=== PATIENT | male | born 1980 | race Caucasian/White ===

== ENCOUNTER 2017-05-29 08:21 | Emergency (ER) | payer MEDICARE ==
[~2017-05-29] VITALS: Ht 193 cm; Wt 94.0 kg
[~2017-05-29 08:21] MED LIST: BACL20TA PO; DIAZ2 PO; GABA250S PO; LYRI100C PO; SULF1TAB47 PO
[2017-05-29 08:35] VITALS: BP 140/72; PULSE 72; RESP 16; TEMP 98.1; O2SAT 99
[2017-05-29 09:03] LABS: BLOOD, URINE NEG (NEG); GLUCOSE,URINE NEG (NEG); KETONE, URINE NEG (NEG); NITRITE,URINE NEG (NEG); PH, URINE 7.5 (5.0-8.5)
[2017-05-29 09:11] LABS: METHOD OF COLLECTION CLEAN CATCH; URINE COLOR YELLOW (YELLW/STRAW)
[2017-05-29 09:12] LABS: COMMENT (UR) CULT NOT INDICATED; CULTURE IF INDICATED CULT NOT INDICATED
[2017-05-29] MEDS ORDERED: BACT800T5 PO (09:47)
--- NOTE | 2017-05-29 09:48 | PD ---
HPI Chief Complaint: dysuria Time Seen by Provider: 09:32 Travel History International Travel<30 days: No Contact w/Intl Traveler<30days: No History of Present Illness HPI Patient's 37 years old. He describes dysuria and spasms sensation in the region of the urinary bladder. 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 He self catheterizes. He states that in the past urinary tract infections have felt similar. Earlier this week he went to urgent care and was diagnosed with a urinary tract infection and was given Cipro. Spine compliance he reports persistent dysuria water spasming. He's had no fever or vomiting. No flank pain. PFS Past Medical History Anxiety: Yes Neurologic: Yes (PARAPLEGIC) Past Surgical History Other Surgery: Yes (FLAPS AND GRAPHS) Social History Alcohol Use: Yes (rare) Tobacco Use: No Allergies-Medications (Allergen,Severity, Reaction): Coded Allergies: No Known Allergies (Verified , 05/29/17) Reported Meds & Prescriptions Reported Meds & Active Scripts Active Bactrim DS (Sulfamethoxazole-Trimethoprim) 800-160 Mg Tab 1 Tab PO BID Reported Cipro (Ciprofloxacin HCl) 500 Mg Tab 500 Mg PO BID Gabapentin 300 Mg Cap 300 Mg PO TID Baclofen 20 Mg Tab 20 Mg PO QID Review of Systems Except as stated in HPI: all other systems reviewed are Neg General / Constitutional: No: Fever Gastrointestinal: No: Nausea, Vomiting Genitourinary: Positive: Dysuria Physical Exam Narrative GENERAL: Well-nourished well-developed 37-year-old male pleasant no acute distress SKIN: Warm and dry. HEAD: Atraumatic. Normocephalic. EYES: Pupils equal and round. No scleral icterus. No injection or drainage. ENT: No nasal bleeding or discharge. Mucous membranes pink and moist. NECK: Trachea midline. No JVD. CARDIOVASCULAR: Regular rate and rhythm. RESPIRATORY: No accessory muscle use. Clear to auscultation. Breath sounds equal bilaterally. GASTROINTESTINAL: No significant suprapubic tenderness or tenderness elsewhere about the abdomen. Abdomen soft. No flank tenderness to percussion. MUSCULOSKELETAL: Atrophy of the bilateral lower extremities. Upper extremities normal. NEUROLOGICAL: Paralysis from the waist down. Awake and alert. Normal speech memory mentation. PSYCHIATRIC: Appropriate mood and affect; insight and judgment normal. Data Data Last Documented VS Vital Signs Date Time Temp Pulse Resp B/P (MAP) Pulse Ox O2 Delivery O2 Flow Rate FiO2 05/29/17 09:56 16 05/29/17 08:35 98.1 72 140/72 (94) 99 Room Air Vital signs reviewed Orders Orders Urinalysis - C+S If Indicated (05/29/17 08:46) Ceftriaxone Inj (Rocephin Inj) (05/29/17 10:00) Sodium Chloride 0.9% Flush (Ns Flush) (05/29/17 10:00) Lidocaine 1% Inj (50 Ml) (Xylocaine 1% I (05/29/17 10:00) Sulfamet-Trimeth Ds 800-160 Mg (Bactrim (05/29/17 10:00) Labs Laboratory Tests Test 05/29/17 08:45 Urine Collection Type CLEAN CATCH Urine Color YELLOW Urine Turbidity CLEAR Urine pH 7.5 Urine Specific [place] 1.015 Urine Protein NEG mg/dL Urine Glucose (UA) NEG mg/dL Urine Ketones NEG mg/dL Urine Occult Blood NEG Urine Nitrite NEG Urine Bilirubin NEG Urine Leukocyte Esterase SMALL Urine WBC 3-5 /hpf Urine Squamous Epithelial Cells 6-8 /hpf Microscopic Urinalysis Comment CULT NOT INDICATED Urine Collection Time 08:45 [facility] Medical Decision Making Medical Screen Exam Complete: Yes Emergency Medical Condition: Yes Medical Record Reviewed: Yes Differential Diagnosis Complicated cystitis, cystitis, hematuria, sterile pyuria, bladder spasm, appendicitis, colitis Narrative Course Urinalysis: Small leukocyte esterase 3-5 WBCs might be consistent with a UTI in the setting of a self-catheterization We'll provide the patient with a dose of Rocephin here. He'll go home with Bactrim DS. He intends to fly to [facility] in about 5 days' time and would like aggressive treatment so as to avoid infection en route overseas. Because his abdominal exam is benign and because he has no nausea vomiting or fever and has had similar prior episodes that responded well to antibiotics evaluation with additional imaging or bloodwork is considered reasonably safely deferable. Strict return precautions discussed. Diagnosis Primary Impression: UTI (urinary tract infection) Qualified Codes: N39.0 - Urinary tract infection, site not specified Additional Impression: Bladder spasms Referrals: Primary Care Physician Additional Instructions: If you do not feel significant improvement within 48 hours please return to the ER for a more thorough diagnostic evaluation. Med/Other Pt SpecificInfo: Prescription(s) given Scripts Sulfamethoxazole-Trimethoprim (Bactrim DS) 800-160 Mg Tab 1 TAB PO BID for Infection, #10 TAB 1 Refill Prov: Brown Kirkland MD 05/29/17 Disposition: 01 DISCHARGE HOME Condition: Stable Brown Kirkland MD May 29, 2017 09:48
[2017-05-29] MEDS ORDERED: SULFAMETHOXAZOLE-TRIMETHOPRIM DS 800-160 MG TAB PO ONE (10:00)
[2017-05-29] MEDS ORDERED: SODIUM CHLORIDE 0.9% FLUSH 10 ML FLUSH IVF PRN (10:00)
[2017-05-29] MEDS ORDERED: LIDOCAINE HCL 1% 50 ML VIAL XX ONE (10:00)
[2017-05-29] MEDS ORDERED: GABA300C5 PO (10:02)
[2017-05-29] MEDS ORDERED: BACL20TA PO (10:02)
[2017-05-29] MEDS ORDERED: CIPR-9 PO (10:03)
== END 2017-05-29 11:06 | disposition home or self-care (01) ==
LOC: PHED 08:21
DX: N39.0 Urinary tract infection, site not specified (principal); N32.89 Other specified disorders of bladder; G82.20 Paraplegia, unspecified
CPT/HCPCS: 81001; 96372; 99284; J0696

== ENCOUNTER 2017-09-08 11:04 | Emergency (ER) | payer MEDICARE ==
[~2017-09-08] VITALS: Ht 193 cm; Wt 94.5 kg
[~2017-09-08 11:04] MED LIST changes: +BACT800T5 PO; +CIPR-9 PO; -DIAZ2 PO; -GABA250S PO; +GABA300C5 PO; -LYRI100C PO; -SULF1TAB47 PO
[2017-09-08 11:10] VITALS: BP 137/72; PULSE 70; RESP 16; TEMP 97.9; O2SAT 99
--- NOTE | 2017-09-08 11:30 | PD ---
HPI Chief Complaint: Complaint Time Seen by Provider: 11:24 Travel History International Travel<30 days: No Contact w/Intl Traveler<30days: No Traveled to known affect area: No History of Present Illness HPI This 37-year-old male is concerned that he may have a urinary tract infection. He has some abdominal bloating and cramping which her symptoms of his urinary tract infections. He has a history of paraplegia at T6. He self catheterizes intermittently. He has not been having any fever or chills. He went to an urgent care center about a week ago and was put on Bactrim. He has not had fever or chills. PFSH Past Medical History Anxiety: Yes Genitourinary: Yes (uti) Neurologic: Yes (PARAPLEGIC , waist down) Tetanus Vaccination: < 5 Years Influenza Vaccination: No Past Surgical History Other Surgery: Yes (FLAPS AND SKIN GRAPHS TO BOTH THIGHS, right hip) Social History Alcohol Use: Yes (rare) Tobacco Use: No Substance Use: No Allergies-Medications (Allergen,Severity, Reaction): Coded Allergies: No Known Allergies (Verified Adverse Reaction, Unknown, 09/08/17) Reported Meds & Prescriptions Reported Meds & Active Scripts Active Reported Gabapentin 300 Mg Cap 300 Mg PO TID Baclofen 20 Mg Tab 20 Mg PO QID Review of Systems General / Constitutional: No: Fever, Chills Eyes: No: Diploplia, Blurred Vision HENT: No: Headaches, Vertigo Cardiovascular: No: Chest Pain or Discomfort Respiratory: No: Cough, Shortness of Breath Gastrointestinal: No: Nausea, Vomiting Genitourinary: Positive: Pelvic Pain, No: Urgency, Frequency Musculoskeletal: No: Myalgias, Arthralgias Skin: No Rash Neurologic: No: Weakness Hematologic/Lymphatic: No: Easy Bruising Physical Exam Narrative GENERAL: Well-developed male SKIN: Focused skin assessment warm/dry. HEAD: Atraumatic. Normocephalic. EYES: Pupils equal and round. No scleral icterus. No injection or drainage. ENT: No nasal bleeding or discharge. Mucous membranes pink and moist. NECK: Trachea midline. No JVD. CARDIOVASCULAR: Regular rate and rhythm. No murmur appreciated. RESPIRATORY: No accessory muscle use. Clear to auscultation. Breath sounds equal bilaterally. GASTROINTESTINAL: Abdomen soft, non-tender, nondistended. Hepatic and splenic margins not palpable. MUSCULOSKELETAL: No obvious deformities. No clubbing. No cyanosis. No edema. NEUROLOGICAL: Awake and alert. No obvious cranial nerve deficits. Bilateral leg paralysis. Normal speech. PSYCHIATRIC: Appropriate mood and affect; insight and judgment normal. Data Data Last Documented VS Vital Signs Date Time Temp Pulse Resp B/P (MAP) Pulse Ox O2 Delivery O2 Flow Rate FiO2 09/08/17 11:10 97.9 70 16 137/72 (93) 99 Orders Orders Urinalysis - C+S If Indicated (09/08/17 11:33) Phenazopyridine (Pyridium) (09/08/17 12:15) Labs Laboratory Tests Test 09/08/17 11:30 Urine Collection Type CLEAN CATCH Urine Color YELLOW Urine Turbidity CLEAR Urine pH 7.0 Urine Specific [place] 1.020 Urine Protein NEG mg/dL Urine Glucose (UA) NEG mg/dL Urine Ketones NEG mg/dL Urine Occult Blood NEG Urine Nitrite NEG Urine Bilirubin NEG Urine Leukocyte Esterase NEG Microscopic Urinalysis Comment CULT NOT INDICATED MDM Medical Decision Making Medical Screen Exam Complete: Yes Emergency Medical Condition: Yes Medical Record Reviewed: Yes Differential Diagnosis Differential includes UTI, cystitis, dysuria Narrative Course Urine is negative for infection. I don't think empiric antibiotics are warranted. I will prescribe Pyridium for symptomatic treatment Diagnosis Primary Impression: Dysuria Scripts Phenazopyridine HCl (Pyridium) 200 Mg Tablet 1 TAB PO Q8HR for Dysuria, #30 Prov: Billy Ireland MD 09/08/17 Disposition: 01 DISCHARGE HOME Condition: Stable Billy Ireland MD Sep 08, 2017 11:30
[2017-09-08 11:45] LABS: BLOOD, URINE NEG (NEG); GLUCOSE,URINE NEG (NEG); KETONE, URINE NEG (NEG); NITRITE,URINE NEG (NEG)
[2017-09-08 11:52] LABS: METHOD OF COLLECTION CLEAN CATCH; URINE COLOR YELLOW (YELLW/STRAW)
[2017-09-08 11:53] LABS: COMMENT (UR) CULT NOT INDICATED; CULTURE IF INDICATED CULT NOT INDICATED
[2017-09-08] MEDS ORDERED: PHEN-510 PO (12:11)
[2017-09-08] MEDS ORDERED: PHENAZOPYRIDINE HCL 200 MG TAB PO ONE (12:15)
== END 2017-09-08 12:33 | disposition home or self-care (01) ==
LOC: PHED 11:04
DX: R30.0 Dysuria (principal); G82.20 Paraplegia, unspecified
CPT/HCPCS: 81001; 99283